=== PATIENT | male | born 1965 | race Caucasian/White ===

== ENCOUNTER → 2016-10-23 | Outpatient (CLI) | payer OTHER ==
[2016-10-23 17:22] LABS: Anion Gap 8 mmol/L; Blood Urea Nitrogen 13 mg/dL (9-20); Calcium 9.3 mg/dL (8.4-10.2); Carbon Dioxide 26 mmol/L (22-30); Chloride 106 mmol/L (98-107); Glucose 93 mg/dL (74-99); Non-African American GFR(MDRD) >60 (>60 ml/min/1.73 sqM); Potassium 4.2 mmol/L (3.5-5.1); Sodium 140 mmol/L (137-145)
--- NOTE | 2016-10-23 17:50 | CT ---
EXAMINATION TYPE: CT angio chest DATE OF EXAM: 10/23/2016 5:18 PM COMPARISON: NONE HISTORY: R/O PE. STATES OF ENLARGED HEART CT DLP: 646.0 mGycm Automated exposure control for dose reduction was used. CONTRAST: CTA scan of the thorax is performed with IV Contrast, patient injected with 70 mL of Omnipaque 350, p ulmonary embolism protocol. There are 3-D post processed images.. FINDINGS: The lungs are clear of consolidation. There is no evidence of a pulmonary mass. There is no pleural effusion. Heart is top normal in size. There are no hilar masses. There is no mediastinal ad enopathy. There is no evidence of aortic aneurysm or dissection. I see no filling defects in the pulmonary arteries. There is no pericardial effusion. The bony thorax appears intact. IMPRESSION: BORDERLINE CARDIOMEGALY. NO EVIDENCE OF PULMONARY EMBOLISM.
== END | disposition home or self-care (01) ==
LOC: RADCTMAIN 16:43
PROVIDERS: ATTEND Internal Medicine Cardiovascular Disease
DX: I51.7 Cardiomegaly (principal)
CPT/HCPCS: 83880; 80048; 71275; 36415; Q9967

== ENCOUNTER 2020-05-02 14:12 | Inpatient (IN) | payer OTHER ==
--- NOTE | 2020-05-02 14:38 | ED ---
General Adult HPI - General Chief complaint: Shortness of Breath Stated complaint: Vomiting Time Seen by Provider: 05/02/20 14:23 Source: patient, EMS Mode of arrival: EMS - History of Present Illness Initial comments: Dictation was produced using [employer] dictation software. please excuse any grammatical, word or spelling errors. This patient was cared for during a federal and state declared state of emergency secondary to Covid 19 Chief Complaint: 55-year-old male presents to the emergency department for hypoxic respiratory failure via transfer from [facility] History of Present Illness: 55-year-old male he was diagnosed positive with Covid 19 4 days ago. He is seen initially at [facility] were he had a CT angioma performed. He is discharged at that time. Patient's been symptomatic for the last week or so. Today he states that his symptoms are much worse. He was was evaluated at [facility] in response to be slightly hypoxic in the high 80s. Patient has no significant past medical history. 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 The ROS documented in this emergency department record has been reviewed and confirmed by me. Those systems with pertinent positive or negative responses have been documented in the HPI. All other systems are other negative and/or noncontributory. PHYSICAL EXAM: General Impression: Alert and oriented x3, not in acute distress HEENT: Normocephalic atraumatic, extra-ocular movements intact, pupils equal and reactive to light bilaterally, mucous membranes moist. Cardiovascular: Heart regular rate and rhythm Chest: Able to complete full sentences, no retractions, no tachypnea Abdomen: abdomen soft, non-tender, non-distended, no organomegaly Musculoskeletal: Pulses present and equal in all extremities, no peripheral edema Motor: no focal deficits noted Neurological: CN II-XII grossly intact, no focal motor or sensory deficits noted Skin: Intact with no visualized rashes Psych: Normal affect and mood ED course: 55-year-old male transferred from [facility] for hypoxic respiratory failure and Covid 19 vital signs upon arrival shows 94% on 2 L nasal cannula, worse vital signs within acceptable limits. Patient is satting well on 2 L nasal cannula. Allegedly patient oxygen fell into the high 80s without oxygen. Patient does not wear any home oxygen. Transferred documentation was reviewed. Patient's well-appearing at bedside and showing no signs of respiratory distress. Case is discussed with Dr. Haddad who is willing to accept patients care for admission. - Related Data Allergies Allergy/AdvReac Type Severity Reaction Status Date / Time No Known Allergies Allergy Verified 05/02/20 14:43 Review of Systems ROS Statement: Those systems with pertinent positive or pertinent negative responses have been documented in the HPI. ROS Other: All systems not noted in ROS Statement are negative. Past Medical History Past Medical History: No Reported History History of Any Multi-Drug Resistant Organisms: None Reported Past Surgical History: Cholecystectomy, Hernia Repair Additional Past Surgical History / Comment(s): lasix eye surgery 99, gallbladder removal 2004, [id number] repair with mesh 2017 Past Psychological History: No Psychological Hx Reported Smoking Status: Never smoker Past Alcohol Use History: None Reported Past Drug Use History: None Reported Course Vital Signs 05/02/20 14:24 Temperature 99.1 F Pulse Rate 91 Respiratory 20 Rate Blood Pressure 123/81 O2 Sat by Pulse 94 L Oximetry Disposition Clinical Impression: COVID-19 Disposition: ADMITTED IP TO THIS [facility] Condition: Fair Referrals: Jean Loaiza MD [Primary Care Provider] - 1-2 days Decision Time: 15:06
[2020-05-02] MEDS ORDERED: ACETAMINOPHEN TAB 325 MG TAB PO PRN (14:57)
[2020-05-02] MEDS ORDERED: NALOXONE 0.4 MG/ML 1 ML VIAL IV PRN (14:57)
[2020-05-02] MEDS: SODIUM CHLORIDE 0.9% 1,000 ML IV SCH (15:02)
[2020-05-02] MEDS: ONDANSETRON 4 MG/2 ML VIAL IVP PRN (18:43)
[2020-05-02 22:21] LABS: Basophils # (A) 0.1 k/uL (0-0.2); Basophils % (A) 2 %; Eosinophils % (A) 0 %; HCT 42.3 % (39.0-53.0); HGB 15.2 gm/dL (13.0-17.5); Hyperchromasia Slight; Lymphocytes # (A) 1.4 k/uL (1.0-4.8); Lymphocytes % (A) 36 %; MCH 30.8 pg (25.0-35.0); MCHC 35.9 g/dL (31.0-37.0); MCV 85.8 fL (80.0-100.0); Mean Platelet Volume 7.8; Monocytes # (A) 0.3 k/uL (0-1.0); Monocytes % (A) 7 %; Neutrophils % (A) 54 %; Platelet Count 199 k/uL (150-450); RBC 4.93 m/uL (4.30-5.90); RDW 12.1 % (11.5-15.5); WBC 3.8 k/uL (3.8-10.6)
[2020-05-02 22:26] LABS: ALT 55 U/L (4-49); AST 88 U/L (17-59); African American GFR (CKD) >90 (>60 ml/min/1.73 sqM); Albumin 3.4 g/dL (3.5-5.0); Albumin/Globulin Ratio 1.3; Alkaline Phosphatase 42 U/L (38-126); Anion Gap 7 mmol/L; Blood Urea Nitrogen 18 mg/dL (9-20); Calcium 8.4 mg/dL (8.4-10.2); Carbon Dioxide 28 mmol/L (22-30); Chloride 103 mmol/L (98-107); Globulin 2.7 g/dL; Glucose 112 mg/dL (74-99); Non-African American GFR(CKD) >90 (>60 ml/min/1.73 sqM); Potassium 4.4 mmol/L (3.5-5.1); Sodium 138 mmol/L (137-145); Total Bilirubin 0.8 mg/dL (0.2-1.3); Total Protein 6.1 g/dL (6.3-8.2)
--- NOTE | 2020-05-02 23:47 | P.HPIM ---
History of Present Illness H&P Date: 05/02/20 Chief Complaint: Short of breath History of presenting complaint: This is a pleasant 55-year-old patient who follows with Dr. Loaiza. Normally in good health. About 8 days ago patient started off with fever or chills significant headaches. Some diarrhea. Some loss of taste and smell. Bodyaches. Patient's is also got COVID. Initiate called in to his family doctor was given Zithromax. Didn't improve decided to go down to [facility] insects and dusky. Over the weekend. He does not remember his pulse ox. Was sent home. Symptoms are not really improved his a poor appetite. And is lost some weight. Decided to come in. In the ER was 91% on 3 L. Rather tight. Coughing quite a bit. 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 Physical examination: VITAL SIGNS: 99.1, 91, 20, 123/81, 91% on 3 daughters GENERAL: BMI 34.1, laying in bed , coughing bouts. EYES: Pupils equal. Conjunctiva normal. HEENT: External appearance of nose and ears normal, oral cavity grossly normal. NECK: JVD not raised; masses not palpable. HEART: First and second heart sounds are normal; no edema. LUNGS: Respiratory rate increased, decreased breath sounds. ABDOMEN: Soft, nontender, liver spleen not palpable, no masses palpable. PSYCH: [Alert and oriented x3; mood and affect slightly anxious l. NEUROLOGICAL: Cranial nerves grossly intact; no facial asymmetry, power and sensation grossly intact. LYMPHATICS: No lymph nodes palpable in the axilla and neck INVESTIGATIONS, reviewed in the clinical context: White count 3.8 hemoglobin 15.2 platelets 199 lymphocytes 1.4 D-dimer 0.94 potassium 4.4 creatinine 0.94 AST 88 ALT 55 CRP 33 Chest x-ray pending Assessment and plan: -COVID 19 pneumonia, symptoms present for about a week. Patient be started on Lovenox, Decadron, and supplements including zinc vitamin D vitamin C, Pepcid. We'll also give patient colchicine. -Relative hypoxia, give oxygen supplementation and incentive spirometry. -Obesity BMI 34.1 Consult ID and pulmonary. Care was discussed with the patient. Expected the patient to be in the hospital at least for 2 nights given his relative hypoxia Past Medical History Past Medical History: No Reported History History of Any Multi-Drug Resistant Organisms: None Reported Past Surgical History: Cholecystectomy, Hernia Repair Additional Past Surgical History / Comment(s): lasix eye surgery 99, gallbladder removal 2004, [id number] repair with mesh 2017 Past Psychological History: No Psychological Hx Reported Smoking Status: Never smoker Past Alcohol Use History: None Reported Past Drug Use History: None Reported Medications and Allergies Home Medications Medication Instructions Recorded Confirmed Type No Known Home Medications 05/02/20 05/02/20 History Allergies Allergy/AdvReac Type Severity Reaction Status Date / Time No Known Allergies Allergy Verified 05/02/20 15:32 Physical Exam Vitals: Vital Signs Temp Pulse Pulse Resp BP BP Pulse Ox 05/02/20 22:15 98.9 F 82 17 98/64 90 L 05/02/20 18:00 98.4 F 61 18 130/66 95 05/02/20 16:00 98.1 F 86 19 127/74 91 L 05/02/20 14:24 99.1 F 91 20 123/81 94 L Intake and Output 05/02/20 05/02/20 05/03/20 14:59 22:59 06:59 Other: # Voids 1 Weight 127.006 kg 127.006 kg Results CBC & Chem 7: 05/02/20 21:51 05/02/20 21:51 Labs: Abnormal Lab Results - Last 24 Hours (Table) 05/02/20 05/02/20 Range/Units 21:51 21:51 D-Dimer 0.94 H (<0.60) mg/L FEU Glucose 112 H (74-99) mg/dL AST 88 H (17-59) U/L ALT 55 H (4-49) U/L C-Reactive Protein 33.0 H (<10.0) mg/L Total Protein 6.1 L (6.3-8.2) g/dL Albumin 3.4 L (3.5-5.0) g/dL Thrombosis Risk Factor Assmnt - Choose All That Apply Each Factor Represents 1 point: Age 41-60 years Thrombosis Risk Factor Assessment Total Risk Factor Score: 1 Thrombosis Risk Factor Assessment Level: Low Risk
--- NOTE | 2020-05-03 00:06 | XR ---
EXAMINATION TYPE: XR chest 1V portable DATE OF EXAM: 05/02/2020 COMPARISON: Today HISTORY: Short of breath TECHNIQUE: FINDINGS: There is coarse interstitial infiltrate throughout the lungs with patchy atelectasis. Heart size is normal. There is no definite pleural effusion. IMPRESSION: Interstitial pulmonary infiltrates and patchy atelectasis which is not significantly diff erent than the exam 12 hours ago. Normal heart size.
[2020-05-03] MEDS: ZINC SULFATE 220 MG CAP PO SCH ×2 (00:37→08:59)
[2020-05-03] MEDS: FAMOTIDINE 20 MG TAB PO SCH ×3 (00:37→20:35)
[2020-05-03] MEDS: CHOLECALCIFEROL 25 MCG (1000 IU) TABLET PO SCH ×2 (00:37→08:59)
[2020-05-03] MEDS: ASCORBIC ACID 500 MG TAB PO SCH ×2 (00:37→08:59)
[2020-05-03] MEDS: COLCHICINE 0.6 MG EACH PO SCH ×3 (00:38→20:35)
[2020-05-03] MEDS: ENOXAPARIN 120 MG/0.8 ML SYRINGE SQ SCH ×3 (00:38→20:35)
[2020-05-03] MEDS: ONDANSETRON 4 MG/2 ML VIAL IVP PRN ×2 (00:40→09:01)
[2020-05-03] MEDS: ALBUTEROL HFA INHALER INHALATION SCH ×6 (01:13→20:08)
[2020-05-03] MEDS: dexAMETHasone 2 MG TAB PO SCH (08:58)
[2020-05-03] MEDS ORDERED: REMDESIVIR 200 MG in SODIUM CHLORIDE 0.9% 250 ML IVPB ONE (14:00)
[2020-05-03 14:41] VITALS: BMI 34.0
[2020-05-03] MEDS: SODIUM CHLORIDE 0.9% 1,000 ML IV SCH (19:04)
--- NOTE | 2020-05-03 19:50 | P.PN ---
Progress Note - Text Progress Note Date: 05/03/20 Chief Complaint: Short of breath History of presenting complaint: This is a pleasant 55-year-old patient who follows with Dr. Loaiza. Normally in good health. About 8 days ago patient started off with fever or chills significant headaches. Some diarrhea. Some loss of taste and smell. Bodyaches. Patient's is also got COVID. Initiate called in to his family doctor was given Zithromax. Didn't improve decided to go down to [facility] insects and dusky. Over the weekend. He does not remember his pulse ox. Was sent home. Symptoms are not really improved his a poor appetite. And is lost some weight. Decided to come in. In the ER was 91% on 3 L. Rather tight. Coughing quite a bit. Hospital course: Admitted with COVID 19 pneumonia, acute hypoxic respiratory failure. Started on Lovenox, steroids, zinc, Pepcid, vitamin D, vitamin C Today-cough. Tired. Nasal cannula. Oral intake a bit low. Tired Review of systems: Was done for constitutional, cardiovascular, GI, pulmonary. relevant finding as above Active Medications Acetaminophen (Acetaminophen Tab 325 Mg Tab) 650 mg PO Q6HR PRN PRN Reason: Mild Pain or Fever > 100.5 Albuterol Sulfate (Albuterol Hfa Inhaler) 4 puff INHALATION Q4H [facility] Last Admin: 05/03/20 15:28 Dose: 4 puff Documented by: Ascorbic Acid (Ascorbic Acid 500 Mg Tab) 500 mg PO DAILY [facility] Last Admin: 05/03/20 08:59 Dose: 500 mg Documented by: Cholecalciferol (Cholecalciferol 25 Mcg (1000 Iu) Tablet) 100 mcg PO DAILY [facility] Last Admin: 05/03/20 08:59 Dose: 100 mcg Documented by: Colchicine (Colchicine 0.6 Mg Each) 0.6 mg PO BID [facility] Last Admin: 05/03/20 08:58 Dose: 0.6 mg Documented by: Dexamethasone (Dexamethasone 2 Mg Tab) 6 mg PO DAILY [facility] Last Admin: 05/03/20 08:58 Dose: 6 mg Documented by: Enoxaparin Sodium (Enoxaparin 120 Mg/0.8 Ml Syringe) 120 mg SQ Q12HR [facility] Last Admin: 05/03/20 08:59 Dose: 120 mg Documented by: Famotidine (Famotidine 20 Mg Tab) 20 mg PO BID [facility] Last Admin: 05/03/20 08:58 Dose: 20 mg Documented by: Sodium Chloride (Saline 0.9%) 1,000 mls @ 20 mls/hr IV .Q24H [facility] Last Admin: 05/03/20 19:04 Dose: Not Given Documented by: Remdesivir 100 mg/ Sodium (Chloride) 250 mls @ 250 mls/hr IVPB DAILY@1400 [facility] Stop: 05/07/20 14:59 Naloxone HCl (Naloxone 0.4 Mg/Ml 1 Ml Vial) 0.2 mg IV Q2M PRN PRN Reason: Opioid Reversal Ondansetron HCl (Ondansetron 4 Mg/2 Ml Vial) 4 mg IVP Q6HR PRN PRN Reason: Nausea And Vomiting Last Admin: 05/03/20 09:01 Dose: 4 mg Documented by: Zinc Sulfate (Zinc Sulfate 220 Mg Cap) 220 mg PO DAILY [facility] Last Admin: 05/03/20 08:59 Dose: 220 mg Documented by: Past medical history: None 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 Physical examination: VITAL SIGNS: 98.6, 95, 17, 114/67, 94% on 4 L GENERAL: Laying in bed, occasional coughing, tired appearing PSYCH: [Alert and oriented x3; mood and affect slightly anxious l. NEUROLOGICAL: Cranial nerves grossly intact; no facial asymmetry, power and sensation grossly intact. Rest of the exam as per pulmonary and nursing INVESTIGATIONS, reviewed in the clinical context: White count 3.8 hemoglobin 15.2 platelets 199 lymphocytes 1.4 D-dimer 0.94 potassium 4.4 creatinine 0.94 AST 88 ALT 55 CRP 33 Chest x-ray pending Assessment and plan: -COVID 19 pneumonia, symptoms present for about a week before presentation.. Lovenox, Decadron, and supplements including zinc vitamin D vitamin C, Pepcid. colchicine. Started on Remdesivir by ID. -Relative hypoxia, oxygen supplementation and incentive spirometry. -Obesity BMI 34.1 Discussed with the patient. Encouraged to sit up. Use incentive spirometry. Started on Remdesivir.
[2020-05-04] MEDS: ALBUTEROL HFA INHALER INHALATION SCH ×6 (00:56→19:43)
--- NOTE | 2020-05-04 06:24 | CONS ---
CONSULTATION DATE OF SERVICE: 05/03/2020 REASON FOR CONSULTATION: COVID-19 pneumonia. HISTORY OF PRESENT ILLNESS: The patient is a 55-year-old male who has been transferred to this facility from where the patient presented with increasing shortness of breath. Apparently the patient's symptoms started about a week ago and has been mostly weakness and increasing shortness of breath. The patient was initially evaluated at [facility]. The patient did have a COVID-[address] angiogram suggestive of pneumonia. The patient did not mention receiving any specific treatment for the same. The patient presented back to the hospital with concern for increased shortness of breath with minimal exertion. The patient did have a cough which has been moderate in intensity with occasional sputum production. No hemoptysis. No chest pain. Some nausea but no vomiting. No abdominal pain. Did have diarrhea. With these symptoms, the patient was evaluated. The patient did have a chest x-ray with evidence of interstitial pulmonary infiltrate and patchy atelectasis. The patient did have a low- grade fever of 99.1. The patient was hypoxic with O2 sats of 91%, currently on 4 L nasal cannula. The patient did have a normal white count. No lymphopenia. D-dimer was mildly elevated at 0.94. Creatinine was normal. Liver enzymes are elevated. CRP is elevated. The patient has been admitted to the the hospital. Infectious Disease was consulted for further management of antibiotic therapy. REVIEW OF SYSTEMS: Positive points have been mentioned in HPI. Rest of the systems are negative. PAST MEDICAL HISTORY: No major illnesses. PAST SURGICAL HISTORY: Cholecystectomy and hernia repair. SOCIAL HISTORY: No history of smoking, drinking or drug use. FAMILY HISTORY: No pertinent findings noticed. ALLERGIES: No known drug allergies. MEDICATIONS: The patient is currently on Tylenol, Ventolin, vitamin C, colchicine, dexamethasone, Lovenox, Pepcid, Narcan, Zofran and zinc. PHYSICAL EXAMINATION: VITAL SIGNS: Blood pressure is 114/71 with a pulse of 75, temperature 98.4. He is 91% on 4 L nasal cannula. GENERAL DESCRIPTION: A middle-aged male lying in bed in no distress. No tachypnea or accessory muscles of respiration use. HEENT: Examination shows no pallor or scleral icterus. Oral mucous membrane is dry. No pharyngeal erythema or thrush. NECK: Trachea central, no thyromegaly. LUNGS: Unlabored breathing. Coarse with crackles at the bases bilaterally. No wheeze. HEART: S1, S2. Regular rate and rhythm. ABDOMEN: Soft, no tenderness. No guarding or rigidity. EXTREMITIES: No edema of the feet. SKIN: Examination shows no rash or mass palpable. NEUROLOGICAL: Patient is awake, alert, oriented. Mood and affect normal. LABS: Hemoglobin is 15.2, white count 3.8, BUN of 18, creatinine 0.94. Electrolytes have been normal. Liver enzymes mildly elevated. Chest x-ray report as mentioned above. DIAGNOSTIC IMPRESSION AND PLAN: Patient with admission to the hospital with increasing shortness of breath and cough with diagnosis of acute COVID-19 pneumonia. Symptoms onset was about a week ago with evidence of hypoxemia and high risk of progression to respiratory failure. Patient does meet criteria for the remdesivir therapy. PLAN: 1. Patient started on remdesivir mg 100 mg and 100 mg daily. 2. Lovenox, dexamethasone, zinc and ascorbic acid. 3. Droplet isolation and respiratory support. 4. We will follow on clinical condition and investigations to further adjust medication if needed. Thank you for this consultation. Will follow this patient along with you. MMODL / IJN: [id number] /
[2020-05-04 06:52] LABS: C Reactive Protein 54.9 mg/L (<10.0)
[2020-05-04] MEDS: dexAMETHasone 2 MG TAB PO SCH ×2 (07:52→08:01)
[2020-05-04] MEDS: ENOXAPARIN 120 MG/0.8 ML SYRINGE SQ SCH (07:52)
[2020-05-04] MEDS: COLCHICINE 0.6 MG EACH PO SCH ×2 (07:53→07:59)
[2020-05-04] MEDS: FAMOTIDINE 20 MG TAB PO SCH ×3 (07:53→20:15)
[2020-05-04] MEDS: ASCORBIC ACID 500 MG TAB PO SCH ×2 (07:54→08:00)
[2020-05-04] MEDS: ZINC SULFATE 220 MG CAP PO SCH ×2 (07:54→08:01)
[2020-05-04] MEDS: CHOLECALCIFEROL 25 MCG (1000 IU) TABLET PO SCH ×2 (07:54→08:00)
[2020-05-04] MEDS: REMDESIVIR 100 MG in SODIUM CHLORIDE 0.9% 250 ML IVPB SCH (13:38)
[2020-05-04 15:22] LABS: Basophils # (A) 0.01 X 10*3/uL (0.00-0.10); Basophils % (A) 0.2 %; Eosinophils # (A) 0 X 10*3/uL (0.04-0.35); Eosinophils % (A) 0 %; HCT 42.3 % (39.6-50.0); HGB 14.5 g/dL (13.0-17.0); Lymphocytes # (A) 2.11 X 10*3/uL (0.90-5.00); Lymphocytes % (A) 34.1 %; MCH 30.2 pg (27.0-32.0); MCHC 34.3 g/dL (32.0-37.0); MCV 88.1 fL (80.0-97.0); Monocytes # (A) 0.43 X 10*3/uL (0.20-1.00); Monocytes % (A) 6.9 %; Neutrophils # (A) 3.59 X 10*3/uL (1.80-7.70); Platelet Count 262 X 10*3/uL (140-440); RDW 12.1 % (11.5-14.5); WBC 6.19 X 10*3/uL (4.50-10.00)
--- NOTE | 2020-05-04 15:27 | P.CNPUL ---
History of Present Illness Consult date: 05/04/20 Reason for consult: dyspnea, cough, pneumonia, abnormal CXR/CT Chief complaint: Shortness of breath along with cough History of present illness: This is a 55-year-old nonsmoker male with the ongoing cough shortness of breath started from last week, she presented to [facility] where he was found to be hypoxic saturation 80s covert tests came back positive and transferred over here for further evaluation, currently patient is on 6 L oxygen his saturation is 92%, hemodynamic status stable, treated with the Decadron once daily Lovenox Zofran and REMdesivir chest x-ray bilateral interstitial infiltrate and some patchy atelectasis no significant change compared to prior x-rays Review of Systems All systems: negative Past Medical History Past Medical History: No Reported History History of Any Multi-Drug Resistant Organisms: None Reported Past Surgical History: Cholecystectomy, Hernia Repair Additional Past Surgical History / Comment(s): lasix eye surgery 99, gallbladder removal 2004, [id number] repair with mesh 2017 Past Psychological History: No Psychological Hx Reported Smoking Status: Never smoker Past Alcohol Use History: None Reported Past Drug Use History: None Reported Medications and Allergies Home Medications Medication Instructions Recorded Confirmed Type No Known Home Medications 05/02/20 05/02/20 History Allergies Allergy/AdvReac Type Severity Reaction Status Date / Time No Known Allergies Allergy Verified 05/02/20 15:32 Physical Exam Vitals: Vital Signs Temp Pulse Resp BP Pulse Ox 05/04/20 09:29 98.8 F 89 17 91/61 92 L 05/04/20 07:50 98 18 05/04/20 05:55 99.6 F 98 18 100/56 90 L 05/04/20 02:00 98.4 F 75 18 114/71 91 L 05/04/20 01:04 93 L 05/03/20 21:57 98.4 F 75 18 114/71 91 L 05/03/20 19:30 75 18 05/03/20 17:40 98.4 F 78 17 117/73 91 L Intake and Output 05/04/20 05/04/20 05/04/20 06:59 14:59 22:59 Intake Total 560 Balance 560 Intake: Intake, IV Titration 260 Amount Sodium Chloride 0.9% 1, 260 000 ml @ 20 mls/hr IV . Q24H [facility] Rx#:[id number] Oral 300 Other: Voiding Method Toilet - Constitutional General appearance: average body habitus, cooperative, disheveled - EENT Eyes: PERRLA Ears: bilateral: normal - Neck Neck: normal ROM Carotids: bilateral: upstroke normal Thyroid: bilateral: normal size - Respiratory Respiratory: bilateral: diminished - Cardiovascular Rhythm: regular Heart sounds: normal: S1, S2 - Gastrointestinal General gastrointestinal: normal bowel sounds - Neurologic Neurologic: CNII-XII intact - Musculoskeletal Musculoskeletal: gait normal, generalized weakness, strength equal bilaterally - Psychiatric Psychiatric: A&O x's 3, appropriate affect, intact judgment & insight Results - Laboratory Findings CBC and BMP: 05/02/20 21:51 05/02/20 21:51 PT/INR, D-dimer D-Dimer 0.47 mg/L FEU (<0.60) 05/04/20 06:06 Abnormal lab findings: Abnormal Labs 05/02/20 05/02/20 05/04/20 21:51 21:51 06:06 D-Dimer 0.94 H Glucose 112 H AST 88 H ALT 55 H Lactate Dehydrogenase 1600 H C-Reactive Protein 33.0 H 54.9 H Total Protein 6.1 L Albumin 3.4 L - Diagnostic Findings Chest x-ray: report reviewed, image reviewed (Finding as noted above) Assessment and Plan Assessment: Acute hypoxic respiratory failure Covid 19 pneumonia Morbid obesity Plan: Continue IV REMdesivir along with steroids however we'll change it to IV every 12 continue bronchodilator and current plan of care will follow closely Time with Patient: Greater than 30
--- NOTE | 2020-05-04 15:56 | PN ---
PROGRESS NOTE DATE OF SERVICE: 05/04/2020 REASON FOR FOLLOWUP: Acute COVID-19 pneumonia. INTERVAL HISTORY: The patient is currently afebrile. The patient is breathing comfortably compared to yesterday. Patient denies having any chest pain. Cough has decreased in intensity. No nausea, no vomiting. No abdominal pain and diarrhea has slowed down. PHYSICAL EXAMINATION: Blood pressure 100/56, pulse of 98, temperature 99.6. He is 90% on 4 L nasal cannula. General description is a middle-aged male up in the chair in no distress. RESPIRATORY SYSTEM: Unlabored breathing, decreased intensity of breath sounds. No wheeze. HEART: S1, S2. Regular rate and rhythm. ABDOMEN: Soft, no tenderness. LABS: D-dimer is down to 0.47. LDH of 1600. CRP is 54.9. Procalcitonin is normal. DIAGNOSTIC IMPRESSION AND PLAN: Patient with acute COVID-19 pneumonia. This patient seemed to have shown overall clinical response to the current treatment. Currently on Remdesivir, dexamethasone, Lovenox, zinc, to continue along with respiratory support. Has been advised to use the incentive spirometry. Continue supportive care. MMODL / IJN: [id number] /
[2020-05-04] MEDS: SODIUM CHLORIDE 0.9% 1,000 ML IV SCH (19:16)
[2020-05-04] MEDS: ENOXAPARIN 40 MG/0.4 ML SYRINGE SQ SCH (20:15)
--- NOTE | 2020-05-04 22:12 | P.PN ---
Subjective From records This is a pleasant 55-year-old patient who follows with Dr. Loaiza. Normally in good health. About 8 days ago patient started off with fever or chills significant headaches. Some diarrhea. Some loss of taste and smell. Bodyaches. Patient's is also got COVID. Initiate called in to his family doctor was given Zithromax. Didn't improve decided to go down to [facility] insects and dusky. Over the weekend. He does not remember his pulse ox. Was sent home. Symptoms are not really improved his a poor appetite. And is lost some weight. Decided to come in. In the ER was 91% on 3 L. Rather tight. Coughing quite a bit. Hospital course: Admitted with COVID 19 pneumonia, acute hypoxic respiratory failure. Started on Lovenox, steroids, zinc, Pepcid, vitamin D, vitamin C Today-cough. Tired. Nasal cannula. Oral intake a bit low. Tired Subjective: 05/04/2020 This is a pleasant 55 years old male who presents with respiratory distress and found to have Covid pneumonia and acute hypoxic respiratory failure. Patient was sitting in chair comfortable not in respiratory distress needed about 4-5 L of oxygen per minute to keep his oxygen saturation and 90s, he has mild coughing with no chest pain. He has also significant diarrhea with increased frequency about every hour as per patient with no abdominal pain or vomiting Patient was not on home oxygen Continue anticoagulation for surgery team hemodynamically he is a stable. Blood pressure was on the low side this morning 91/61 but improved thereafter. Labs including CBC and BMP are unremarkable. Prostatecalcitonin is not elevated at 0.06. Inflammatory markers are elevated with lactate dehydrogenase 1600, C- reactive protein 54.9. he is currently covered with dexamethasone, vitamin C, zinc, Lovenox and remdesivir Lower Lovenox. Therapeutic to prophylactic dose because of improving d-dimer within the reference range Review of systems CONSTITUTIONAL: No fever, no malaise, no fatigue. HEENT: No recent visual problems or hearing problems. Denied any sore throat. CARDIOVASCULAR: No orthopnea, PND, no palpitations, no syncope. PULMONARY: No chest wall tenderness, no hemoptysis. GASTROINTESTINAL: No diarrhea, no nausea, no vomiting, no abdominal pain. Normoactive bowel sounds. NEUROLOGICAL: No headaches, no weakness, no numbness. Active Medications Generic Name Dose Route Start Last Admin Trade Name Freq PRN Reason Stop Dose Admin Acetaminophen 650 mg 05/02/20 14:57 Acetaminophen Tab 325 Mg Tab PO Q6HR PRN Mild Pain or Fever > 100.5 Albuterol Sulfate 4 puff 05/02/20 23:45 05/04/20 19:43 Albuterol Hfa Inhaler INHALATION 4 puff Q4H [facility] Administration Ascorbic Acid 500 mg 05/02/20 23:45 05/04/20 08:00 Ascorbic Acid 500 Mg Tab PO Not Given DAILY [facility] Cholecalciferol 100 mcg 05/02/20 23:45 05/04/20 08:00 Cholecalciferol 25 Mcg (1000 Iu) Tablet PO Not Given DAILY [facility] Dexamethasone 6 mg 05/03/20 09:00 05/04/20 08:01 Dexamethasone 2 Mg Tab PO Not Given DAILY [facility] Enoxaparin Sodium 40 mg 05/04/20 21:00 05/04/20 20:15 Enoxaparin 40 Mg/0.4 Ml Syringe SQ 40 mg Q12HR [facility] Administration Famotidine 20 mg 05/02/20 23:45 05/04/20 20:15 Famotidine 20 Mg Tab PO 20 mg BID [facility] Administration Sodium Chloride 1,000 mls @ 20 mls/hr 05/02/20 15:00 05/04/20 19:16 Saline 0.9% IV Not Given .Q24H [facility] Remdesivir 100 mg/ Sodium 250 mls @ 250 mls/hr 05/04/20 14:00 05/04/20 13:38 Chloride IVPB 05/07/20 14:59 250 mls/hr DAILY@1400 [facility] Administration Naloxone HCl 0.2 mg 05/02/20 14:57 Naloxone 0.4 Mg/Ml 1 Ml Vial IV Q2M PRN Opioid Reversal Ondansetron HCl 4 mg 05/02/20 18:23 05/03/20 09:01 Ondansetron 4 Mg/2 Ml Vial IVP 4 mg Q6HR PRN Administration Nausea And Vomiting Zinc Sulfate 220 mg 05/02/20 23:45 05/04/20 08:01 Zinc Sulfate 220 Mg Cap PO Not Given DAILY [facility] Objective - Vital Signs Vital signs: Vital Signs Temp 98.8 F 05/04/20 09:29 Pulse 89 05/04/20 09:29 Resp 17 05/04/20 09:29 BP 91/61 05/04/20 09:29 Pulse Ox 92 L 05/04/20 09:29 Intake & Output 05/03/20 05/04/20 05/04/20 18:59 06:59 18:59 Intake Total 470 560 Balance 470 560 Weight 127.006 kg Intake: Intake, IV Titration 470 260 Amount Remdesivir 200 mg In 250 Sodium Chloride 0.9% 250 ml @ 250 mls/hr IVPB ONCE ONE Rx#:[id number] Sodium Chloride 0.9% 1, 220 260 000 ml @ 20 mls/hr IV . Q24H [facility] Rx#:[id number] Oral 300 Other: Voiding Method Toilet Toilet Toilet # Voids 2 - Exam GENERAL: The patient is alert and oriented x3, not in any acute distress. Well developed, well nourished. HEENT: Pupils are round and equally reacting to light. EOMI. No scleral icterus. No conjunctival pallor. Normocephalic, atraumatic. No pharyngeal erythema. No thyromegaly. CARDIOVASCULAR: S1 and S2 present. No murmurs, rubs, or gallops. -PULMONARY: Chest is clear to auscultation, scattered crepitation ABDOMEN: Soft, nontender, nondistended, normoactive bowel sounds. No palpable organomegaly. MUSCULOSKELETAL: No joint swelling or deformity. EXTREMITIES: No cyanosis, clubbing, or pedal edema. NEUROLOGICAL: Gross neurological examination did not reveal any focal deficits. SKIN: No rashes. no petechiae. - Labs CBC & Chem 7: 05/04/20 06:06 05/02/20 21:51 Labs: Abnormal Lab Results - Last 24 Hours (Table) 05/04/20 Range/Units 06:06 Lactate Dehydrogenase 1600 H (313-618) U/L C-Reactive Protein 54.9 H (<10.0) mg/L Assessment and Plan Assessment: -COVID 19 pneumonia, symptoms present for about a week before presentation.. Continue with Lovenox, Decadron, and supplements including zinc vitamin D vitamin C, Pepcid. Started on Remdesivir by ID and pulmonary. Discontinue colchicine -Acute hypoxic respiratory failure , c/w oxygen supplementation and incentive spirometry. -Obesity BMI 34.1 DVT prophylaxis: Lovenox GI prophylaxis: Pepcid Prognosis is guarded
[2020-05-05] MEDS: ALBUTEROL HFA INHALER INHALATION SCH ×6 (01:04→21:49)
[2020-05-05] MEDS: ASCORBIC ACID 500 MG TAB PO SCH (08:51)
[2020-05-05] MEDS: FAMOTIDINE 20 MG TAB PO SCH ×2 (08:51→21:13)
[2020-05-05] MEDS: CHOLECALCIFEROL 25 MCG (1000 IU) TABLET PO SCH (08:51)
[2020-05-05] MEDS: ZINC SULFATE 220 MG CAP PO SCH (08:51)
[2020-05-05] MEDS: ENOXAPARIN 40 MG/0.4 ML SYRINGE SQ SCH ×2 (08:52→21:14)
[2020-05-05] MEDS: DEXAMETHASONE SOD PHOSPHATE 10 MG/ML 1 ML VIAL IV SCH ×2 (08:52→21:13)
[2020-05-05] MEDS ORDERED: dexAMETHasone 2 MG TAB PO SCH (09:00)
[2020-05-05 11:56] LABS: Glucose,Whole Blood 126 mg/dL (75-99)
--- NOTE | 2020-05-05 13:13 | PN ---
PROGRESS NOTE DATE OF SERVICE: 05/05/2020 REASON FOR FOLLOWUP: Acute COVID-19 pneumonia. INTERVAL HISTORY: The patient is currently afebrile. The patient is breathing slightly comfortably. Patient denies any chest pain. Did have a cough but no sputum. No nausea. No abdominal pain. No diarrhea. PHYSICAL EXAMINATION: Blood pressure 109/68 with a pulse of 77, temperature 97.6. He is 92% on 4 L nasal cannula. General description is a middle-aged male up in the chair in no distress. Respiratory system: Unlabored breathing with decreased intensity breath sounds in the base. No wheeze. Heart S1, S2. Regular rate and rhythm. Abdomen soft, no tenderness. LABS: No new labs have been obtained today. DIAGNOSTIC IMPRESSION AND PLAN: Patient with acute COVID-19 pneumonia. The patient to continue with Remdesivir, dexamethasone, Lovenox, multivitamin and monitor clinical course closely. Continue supportive care. MMODL / IJN: [id number] /
[2020-05-05] MEDS: INSULIN ASPART (NovoLOG) 100 UNIT/ML VIAL SQ SCH ×3 (13:27→21:02)
[2020-05-05] MEDS: REMDESIVIR 100 MG in SODIUM CHLORIDE 0.9% 250 ML IVPB SCH (13:55)
--- NOTE | 2020-05-05 16:25 | P.PN ---
Subjective From records This is a pleasant 55-year-old patient who follows with Dr. oLaiza. Normally in good health. About 8 days ago patient started off with fever or chills significant headaches. Some diarrhea. Some loss of taste and smell. Bodyaches. Patient's is also got COVID. Initiate called in to his family doctor was given Zithromax. Didn't improve decided to go down to [facility] insects and dusky. Over the weekend. He does not remember his pulse ox. Was sent home. Symptoms are not really improved his a poor appetite. And is lost some weight. Decided to come in. In the ER was 91% on 3 L. Rather tight. Coughing quite a bit. Hospital course: Admitted with COVID 19 pneumonia, acute hypoxic respiratory failure. Started on Lovenox, steroids, zinc, Pepcid, vitamin D, vitamin C Today-cough. Tired. Nasal cannula. Oral intake a bit low. Tired Subjective: 05/04/2020 This is a pleasant 55 years old male who presents with respiratory distress and found to have Covid pneumonia and acute hypoxic respiratory failure. Patient was sitting in chair comfortable not in respiratory distress needed about 4-5 L of oxygen per minute to keep his oxygen saturation and 90s, he has mild coughing with no chest pain. He has also significant diarrhea with increased frequency about every hour as per patient with no abdominal pain or vomiting Patient was not on home oxygen Continue anticoagulation for surgery team hemodynamically he is a stable. Blood pressure was on the low side this morning 91/61 but improved thereafter. Labs including CBC and BMP are unremarkable. Prostatecalcitonin is not elevated at 0.06. Inflammatory markers are elevated with lactate dehydrogenase 1600, C- reactive protein 54.9. he is currently covered with dexamethasone, vitamin C, zinc, Lovenox and remdesivir Lower Lovenox. Therapeutic to prophylactic dose because of improving d-dimer within the reference range 05/05/2020 Patient clinically looks close to yesterday. Some improvement as he describes however clinically looks similar a still needs 4 L/m of oxygen to keep oxygen saturation above 90%. No tachypnea at rest with minimal cuff however he reports improvement in his diarrhea. Patient is asking when he can be discharged home, I explained to him he is not medically ready yet and he agrees to stay. No labs from today. Glucose is controlled. His dexamethasone dose was increased to 6 mg IV twice daily. He continue on Re mdesivir and Lovenox 40 mg twice daily. Also he isn't zinc and vitamin C. We will check for C. diff Review of systems CONSTITUTIONAL: No fever, no malaise, no fatigue. HEENT: No recent visual problems or hearing problems. Denied any sore throat. CARDIOVASCULAR: No orthopnea, PND, no palpitations, no syncope. PULMONARY: No shortness of breath, no cough, no hemoptysis. GASTROINTESTINAL: No diarrhea, no nausea, no vomiting, no abdominal pain. Normoactive bowel sounds. NEUROLOGICAL: No headaches, no weakness, no numbness. Active Medications Generic Name Dose Route Start Last Admin Trade Name Freq PRN Reason Stop Dose Admin Acetaminophen 650 mg 05/02/20 14:57 Acetaminophen Tab 325 Mg Tab PO Q6HR PRN Mild Pain or Fever > 100.5 Albuterol Sulfate 4 puff 05/02/20 23:45 05/05/20 11:35 Albuterol Hfa Inhaler INHALATION 4 puff Q4H [facility] Administration Ascorbic Acid 500 mg 05/02/20 23:45 05/05/20 08:51 Ascorbic Acid 500 Mg Tab PO 500 mg DAILY [facility] Administration Cholecalciferol 100 mcg 05/02/20 23:45 05/05/20 08:51 Cholecalciferol 25 Mcg (1000 Iu) Tablet PO 100 mcg DAILY [facility] Administration Dexamethasone Sodium Phosphate 6 mg 05/05/20 09:00 05/05/20 08:52 Dexamethasone Sod Phosphate 10 Mg/Ml 1 Ml Vial IV 6 mg BID [facility] Administration Enoxaparin Sodium 40 mg 05/04/20 21:00 05/05/20 08:52 Enoxaparin 40 Mg/0.4 Ml Syringe SQ 40 mg Q12HR [facility] Administration Famotidine 20 mg 05/02/20 23:45 05/05/20 08:51 Famotidine 20 Mg Tab PO 20 mg BID [facility] Administration Sodium Chloride 1,000 mls @ 20 mls/hr 05/02/20 15:00 05/04/20 19:16 Saline 0.9% IV Not Given .Q24H [facility] Remdesivir 100 mg/ Sodium 250 mls @ 250 mls/hr 05/04/20 14:00 05/05/20 13:55 Chloride IVPB 05/07/20 14:59 250 mls/hr DAILY@1400 [facility] Administration Insulin Aspart 0 unit 05/05/20 12:30 05/05/20 13:27 Insulin Aspart (Novolog) 100 Unit/Ml Vial SQ Not Given ACHS [facility] Protocol Naloxone HCl 0.2 mg 05/02/20 14:57 Naloxone 0.4 Mg/Ml 1 Ml Vial IV Q2M PRN Opioid Reversal Ondansetron HCl 4 mg 05/02/20 18:23 05/03/20 09:01 Ondansetron 4 Mg/2 Ml Vial IVP 4 mg Q6HR PRN Administration Nausea And Vomiting Zinc Sulfate 220 mg 05/02/20 23:45 05/05/20 08:51 Zinc Sulfate 220 Mg Cap PO 220 mg DAILY [facility] Administration Objective - Vital Signs Vital signs: Vital Signs Temp 97.6 F 05/05/20 10:38 Pulse 77 05/05/20 10:38 Resp 16 05/05/20 10:38 BP 109/68 05/05/20 10:38 Pulse Ox 92 L 05/05/20 10:38 Intake & Output 05/04/20 05/05/20 05/05/20 18:59 06:59 18:59 Other: Voiding Method Toilet Toilet # Voids 2 2 - Exam -GENERAL: The patient is alert and oriented x3, not in any acute distress. Obese HEENT: Pupils are round and equally reacting to light. EOMI. No scleral icterus. No conjunctival pallor. Normocephalic, atraumatic. No pharyngeal erythema. No thyromegaly. CARDIOVASCULAR: S1 and S2 present. No murmurs, rubs, or gallops. -PULMONARY: Chest is clear to auscultation, scattered crepitation ABDOMEN: Soft, nontender, nondistended, normoactive bowel sounds. No palpable organomegaly. MUSCULOSKELETAL: No joint swelling or deformity. EXTREMITIES: No cyanosis, clubbing, or pedal edema. NEUROLOGICAL: Gross neurological examination did not reveal any focal deficits. SKIN: No rashes. no petechiae. - Labs CBC & Chem 7: 05/04/20 06:06 05/02/20 21:51 Labs: Abnormal Lab Results - Last 24 Hours (Table) 05/04/20 05/05/20 Range/Units 06:06 11:51 Immature Gran # 0.05 H (0.00-0.04) X 10*3/uL Eosinophils # 0 L (0.04-0.35) X 10*3/uL POC Glucose (mg/dL) 126 H (75-99) mg/dL Assessment and Plan Assessment: -COVID 19 pneumonia, symptoms present for about a week before presentation.. Continue with Lovenox, Decadron, and supplements including zinc vitamin D vitamin C, Pepcid. Started on Remdesivir by ID and pulmonary. -Viral gastroenteritis secondary to Covid. Rule out C. diff -Acute hypoxic respiratory failure , c/w oxygen supplementation and incentive spirometry. -Obesity BMI 34.1 DVT prophylaxis: Lovenox GI prophylaxis: Pepcid Prognosis is guarded
[2020-05-05] MEDS: SODIUM CHLORIDE 0.9% 1,000 ML IV SCH (16:44)
[2020-05-05 16:50] LABS: Glucose,Whole Blood 145 mg/dL (75-99)
[2020-05-05 20:43] LABS: Glucose,Whole Blood 140 mg/dL (75-99)
[2020-05-06] MEDS: ALBUTEROL HFA INHALER INHALATION SCH ×7 (00:30→23:16)
--- NOTE | 2020-05-06 06:53 | XR ---
EXAMINATION TYPE: XR chest 1V DATE OF EXAM: 05/06/2020 CLINICAL HISTORY: Difficulty breathing and COVID progress study. TECHNIQUE: Single AP portable upright view of the chest is obtained. COMPARISON: Chest x-ray from [address] chest October 23, 2016 FINDINGS: Persistent low lung volumes with chronic parenchymal changes and bibasilar increased opaci ties. Cardiac silhouette size is stable and upper limits of normal. Osseous structures are intact. IMPRESSION: Low lung volumes and multifocal bilateral acute infiltrates consistent with known covid 1 9 infection. No significant change from most recent x-ray.
[2020-05-06 06:58] LABS: Glucose,Whole Blood 141 mg/dL (75-99)
[2020-05-06] MEDS: CHOLECALCIFEROL 25 MCG (1000 IU) TABLET PO SCH (07:18)
[2020-05-06] MEDS: INSULIN ASPART (NovoLOG) 100 UNIT/ML VIAL SQ SCH ×4 (07:18→20:38)
[2020-05-06] MEDS: ASCORBIC ACID 500 MG TAB PO SCH (07:19)
[2020-05-06] MEDS: FAMOTIDINE 20 MG TAB PO SCH ×2 (07:19→20:49)
[2020-05-06] MEDS: ZINC SULFATE 220 MG CAP PO SCH (07:19)
[2020-05-06] MEDS: DEXAMETHASONE SOD PHOSPHATE 10 MG/ML 1 ML VIAL IV SCH ×2 (07:19→20:48)
[2020-05-06] MEDS: ENOXAPARIN 40 MG/0.4 ML SYRINGE SQ SCH ×2 (07:19→20:49)
[2020-05-06 09:45] LABS: African American GFR (CKD) 109.5 (60.0-200.0); Albumin 3.3 g/dL (3.80-4.90); Albumin/Globulin Ratio 1.14 (1.60-3.17); Anion Gap 4.7 mmol/L (4.00-12.00); BUN/Creat Ratio 21.11 Ratio (12.00-20.00); C Reactive Protein 1.8 mg/dL (0.0-0.8); Calcium 8.5 mg/dL (8.7-10.3); Carbon Dioxide 29.3 mmol/L (21.6-31.8); Globulin 2.9 g/dL (1.6-3.3); Non-African American GFR(CKD) 94.5 (60.0-200.0); Potassium 4.5 mmol/L (3.5-5.5); Total Bilirubin 0.8 mg/dL (0.3-1.2); Total Protein 6.2 g/dL (6.2-8.2)
--- NOTE | 2020-05-06 10:01 | P.PN ---
Subjective Progress Note Date: 05/06/20 Principal diagnosis: Acute hypoxic respiratory failure Covid 19 pneumonia Morbid obesity 05/06/2020, patient seen and evaluated examined overall respiratory status is stable remains on 4 L oxygen, and feeling better cough congestion slightly improved does get short of breath on activity and exertion, LDH came down to 514, chest x-ray done earlier today remains unchanged This is a 55-year-old nonsmoker male with the ongoing cough shortness of breath started from last week, she presented to [facility] where he was found to be hypoxic saturation 80s covert tests came back positive and transferred over here for further evaluation, currently patient is on 6 L oxygen his saturation is 92%, hemodynamic status stable, treated with the Decadron once daily Lovenox Zofran and REMdesivir chest x-ray bilateral interstitial infiltrate and some patchy atelectasis no significant change compared to prior x-rays Objective - Vital Signs Vital signs: Vital Signs Temp 97.6 F 05/06/20 05:42 Pulse 71 05/06/20 05:42 Resp 16 05/06/20 05:42 BP 131/81 05/06/20 05:42 Pulse Ox 94 L 05/06/20 05:42 Intake & Output 05/05/20 05/06/20 05/06/20 18:59 06:59 18:59 Intake Total 560 Balance 560 Intake: Intake, IV Titration 260 Amount Sodium Chloride 0.9% 1, 260 000 ml @ 20 mls/hr IV . Q24H [facility] Rx#:[id number] Oral 300 Other: Voiding Method Toilet # Voids 3 3 # Bowel Movements 2 - Exam - Constitutional General appearance: average body habitus, cooperative, disheveled - EENT Eyes: PERRLA Ears: bilateral: normal - Neck Neck: normal ROM Carotids: bilateral: upstroke normal Thyroid: bilateral: normal size - Respiratory Respiratory: bilateral: diminished - Cardiovascular Rhythm: regular Heart sounds: normal: S1, S2 - Gastrointestinal General gastrointestinal: normal bowel sounds - Neurologic Neurologic: CNII-XII intact - Musculoskeletal Musculoskeletal: gait normal, generalized weakness, strength equal bilaterally - Psychiatric Psychiatric: A&O x's 3, appropriate affect, intact judgment & insight - Labs CBC & Chem 7: 05/04/20 06:06 05/06/20 06:16 Labs: Abnormal Lab Results - Last 24 Hours (Table) 05/05/20 05/05/20 05/05/20 Range/Units 11:51 16:44 20:42 BUN/Creatinine Ratio (12.00-20.00) Ratio Glucose (70-110) mg/dL POC Glucose (mg/dL) 126 H 145 H 140 H (75-99) mg/dL Calcium (8.7-10.3) mg/dL AST (14-35) U/L ALT (10-49) U/L Lactate Dehydrogenase (120-246) U/L C-Reactive Protein (0.0-0.8) mg/dL Albumin (3.80-4.90) g/dL Albumin/Globulin Ratio (1.60-3.17) g/dL 05/06/20 05/06/20 Range/Units 06:16 06:57 BUN/Creatinine Ratio 21.11 H (12.00-20.00) Ratio Glucose 144 H (70-110) mg/dL POC Glucose (mg/dL) 141 H (75-99) mg/dL Calcium 8.5 L (8.7-10.3) mg/dL AST 77 H (14-35) U/L ALT 83 H (10-49) U/L Lactate Dehydrogenase 514 H (120-246) U/L C-Reactive Protein 1.8 H (0.0-0.8) mg/dL Albumin 3.30 L (3.80-4.90) g/dL Albumin/Globulin Ratio 1.14 L (1.60-3.17) g/dL Assessment and Plan Assessment: Acute hypoxic respiratory failure Covid 19 pneumonia Morbid obesity Plan: Continue IV REMdesivir along with steroids continue supplemental oxygen Deep breathing exercises incentive spirometry Patient advised to use prone positioning as much as possible Other recommendations pending plan of care as per clinical response of the pat ient Time with Patient: Greater than 30
--- NOTE | 2020-05-06 10:23 | P.PN ---
Subjective From records This is a pleasant 55-year-old patient who follows with Dr. Loaiza. Normally in good health. About 8 days ago patient started off with fever or chills significant headaches. Some diarrhea. Some loss of taste and smell. Bodyaches. Patient's is also got COVID. Initiate called in to his family doctor was given Zithromax. Didn't improve decided to go down to [facility] insects and dusky. Over the weekend. He does not remember his pulse ox. Was sent home. Symptoms are not really improved his a poor appetite. And is lost some weight. Decided to come in. In the ER was 91% on 3 L. Rather tight. Coughing quite a bit. Hospital course: Admitted with COVID 19 pneumonia, acute hypoxic respiratory failure. Started on Lovenox, steroids, zinc, Pepcid, vitamin D, vitamin C Today-cough. Tired. Nasal cannula. Oral intake a bit low. Tired Subjective: 05/04/2020 This is a pleasant 55 years old male who presents with respiratory distress and found to have Covid pneumonia and acute hypoxic respiratory failure. Patient was sitting in chair comfortable not in respiratory distress needed about 4-5 L of oxygen per minute to keep his oxygen saturation and 90s, he has mild coughing with no chest pain. He has also significant diarrhea with increased frequency about every hour as per patient with no abdominal pain or vomiting Patient was not on home oxygen Continue anticoagulation for surgery team hemodynamically he is a stable. Blood pressure was on the low side this morning 91/61 but improved thereafter. Labs including CBC and BMP are unremarkable. Prostatecalcitonin is not elevated at 0.06. Inflammatory markers are elevated with lactate dehydrogenase 1600, C- reactive protein 54.9. he is currently covered with dexamethasone, vitamin C, zinc, Lovenox and remdesivir Lower Lovenox. Therapeutic to prophylactic dose because of improving d-dimer within the reference range 05/05/2020 Patient clinically looks close to yesterday. Some improvement as he describes however clinically looks similar a still needs 4 L/m of oxygen to keep oxygen saturation above 90%. No tachypnea at rest with minimal cuff however he reports improvement in his diarrhea. Patient is asking when he can be discharged home, I explained to him he is not medically ready yet and he agrees to stay. No labs from today. Glucose is controlled. His dexamethasone dose was increased to 6 mg IV twice daily. He continue on Re mdesivir and Lovenox 40 mg twice daily. Also he isn't zinc and vitamin C. We will check for C. diff 05/06/2020 Patient respiratory status looks stable. He made little progress regarding his dyspnea. He still saturating 90% on 4 L oxygen via nasal cannula. He is afebrile. His diarrhea had stopped completely as per patient. D-dimer is negative at 0.39. BMP is unremarkable today. Glucose is controlled. Liver enzymes slightly elevated. Lactate dehydrogenase is 514, was 1600 about 2 days ago and C-reactive protein is 1.8, pulse 54, 2 days ago Repeat chest x-ray showing low lung volumes and multifocal bilateral acute infiltrates consistent with his known Covid 19 infection. No significant change from most recent x-ray Review of systems CONSTITUTIONAL: No fever, no malaise, no fatigue. HEENT: No recent visual problems or hearing problems. Denied any sore throat. CARDIOVASCULAR: No orthopnea, PND, no palpitations, no syncope. PULMONARY: No shortness of breath, no cough, no hemoptysis. GASTROINTESTINAL: No diarrhea, no nausea, no vomiting, no abdominal pain. Normoactive bowel sounds. NEUROLOGICAL: No headaches, no weakness, no numbness. Active Medications Generic Name Dose Route Start Last Admin Trade Name Freq PRN Reason Stop Dose Admin Acetaminophen 650 mg 05/02/20 14:57 Acetaminophen Tab 325 Mg Tab PO Q6HR PRN Mild Pain or Fever > 100.5 Albuterol Sulfate 4 puff 05/02/20 23:45 05/06/20 07:21 Albuterol Hfa Inhaler INHALATION 4 puff Q4H CHARAMINE Administration Ascorbic Acid 500 mg 05/02/20 23:45 05/06/20 07:19 Ascorbic Acid 500 Mg Tab PO 500 mg DAILY CHARMAINE Administration Cholecalciferol 100 mcg 05/02/20 23:45 05/06/20 07:18 Cholecalciferol 25 Mcg (1000 Iu) Tablet PO 100 mcg DAILY CHARMAINE Administration Dexamethasone Sodium Phosphate 6 mg 05/05/20 09:00 05/06/20 07:19 Dexamethasone Sod Phosphate 10 Mg/Ml 1 Ml Vial IV 6 mg BID CHARMAINE Administration Enoxaparin Sodium 40 mg 05/04/20 21:00 05/06/20 07:19 Enoxaparin 40 Mg/0.4 Ml Syringe SQ 40 mg Q12HR CHARMAINE Administration Famotidine 20 mg 05/02/20 23:45 05/06/20 07:19 Famotidine 20 Mg Tab PO 20 mg BID CHARMAINE Administration Sodium Chloride 1,000 mls @ 20 mls/hr 05/02/20 15:00 05/05/20 16:44 Saline 0.9% IV Not Given .Q24H CHARMAINE Remdesivir 100 mg/ Sodium 250 mls @ 250 mls/hr 05/04/20 14:00 05/05/20 13:55 Chloride IVPB 05/07/20 14:59 250 mls/hr DAILY@1400 CHARMAINE Administration Insulin Aspart 0 unit 05/05/20 12:30 05/06/20 07:18 Insulin Aspart (Novolog) 100 Unit/Ml Vial SQ 2 unit ACHS CHARMAINE Administration Protocol Naloxone HCl 0.2 mg 05/02/20 14:57 Naloxone 0.4 Mg/Ml 1 Ml Vial IV Q2M PRN Opioid Reversal Ondansetron HCl 4 mg 05/02/20 18:23 05/03/20 09:01 Ondansetron 4 Mg/2 Ml Vial IVP 4 mg Q6HR PRN Administration Nausea And Vomiting Zinc Sulfate 220 mg 05/02/20 23:45 05/06/20 07:19 Zinc Sulfate 220 Mg Cap PO 220 mg DAILY CHARMAINE Administration Objective - Vital Signs Vital signs: Vital Signs Temp 97.6 F 05/06/20 05:42 Pulse 71 05/06/20 05:42 Resp 16 05/06/20 05:42 BP 131/81 05/06/20 05:42 Pulse Ox 94 L 05/06/20 05:42 Intake & Output 05/05/20 05/06/20 05/06/20 18:59 06:59 18:59 Intake Total 560 Balance 560 Intake: Intake, IV Titration 260 Amount Sodium Chloride 0.9% 1, 260 000 ml @ 20 mls/hr IV . Q24H CHARMAINE Rx#:[id number] Oral 300 Other: Voiding Method Toilet # Voids 3 3 # Bowel Movements 2 - Exam -GENERAL: The patient is alert and oriented x3, not in any acute distress. Obese HEENT: Pupils are round and equally reacting to light. EOMI. No scleral icterus. No conjunctival pallor. Normocephalic, atraumatic. No pharyngeal erythema. No thyromegaly. CARDIOVASCULAR: S1 and S2 present. No murmurs, rubs, or gallops. -PULMONARY: Chest is clear to auscultation, scattered crepitation ABDOMEN: Soft, nontender, nondistended, normoactive bowel sounds. No palpable organomegaly. MUSCULOSKELETAL: No joint swelling or deformity. EXTREMITIES: No cyanosis, clubbing, or pedal edema. NEUROLOGICAL: Gross neurological examination did not reveal any focal deficits. SKIN: No rashes. no petechiae. - Labs CBC & Chem 7: 05/04/20 06:06 05/06/20 06:16 Labs: Abnormal Lab Results - Last 24 Hours (Table) 05/05/20 05/05/20 05/05/20 Range/Units 11:51 16:44 20:42 BUN/Creatinine Ratio (12.00-20.00) Ratio Glucose (70-110) mg/dL POC Glucose (mg/dL) 126 H 145 H 140 H (75-99) mg/dL Calcium (8.7-10.3) mg/dL AST (14-35) U/L ALT (10-49) U/L Lactate Dehydrogenase (120-246) U/L C-Reactive Protein (0.0-0.8) mg/dL Albumin (3.80-4.90) g/dL Albumin/Globulin Ratio (1.60-3.17) g/dL 05/06/20 05/06/20 Range/Units 06:16 06:57 BUN/Creatinine Ratio 21.11 H (12.00-20.00) Ratio Glucose 144 H (70-110) mg/dL POC Glucose (mg/dL) 141 H (75-99) mg/dL Calcium 8.5 L (8.7-10.3) mg/dL AST 77 H (14-35) U/L ALT 83 H (10-49) U/L Lactate Dehydrogenase 514 H (120-246) U/L C-Reactive Protein 1.8 H (0.0-0.8) mg/dL Albumin 3.30 L (3.80-4.90) g/dL Albumin/Globulin Ratio 1.14 L (1.60-3.17) g/dL Assessment and Plan Assessment: -COVID 19 pneumonia, symptoms present for about a week before presentation.. Continue with Lovenox, Decadron, and supplements including zinc vitamin D vitamin C, Pepcid. Started on Remdesivir by ID and pulmonary. -Viral gastroenteritis secondary to Covid. Rule out C. diff -Acute hypoxic respiratory failure , c/w oxygen supplementation and incentive spirometry. -Obesity BMI 34.1 DVT prophylaxis: Lovenox GI prophylaxis: Pepcid Prognosis is guarded
[2020-05-06 11:25] LABS: Glucose,Whole Blood 297 mg/dL (75-99)
[2020-05-06] MEDS: REMDESIVIR 100 MG in SODIUM CHLORIDE 0.9% 250 ML IVPB SCH (13:30)
[2020-05-06] MEDS: SODIUM CHLORIDE 0.9% 1,000 ML IV SCH (13:33)
[2020-05-06 16:26] LABS: Glucose,Whole Blood 160 mg/dL (75-99)
[2020-05-06 20:18] LABS: Glucose,Whole Blood 132 mg/dL (75-99)
[2020-05-07] MEDS: ALBUTEROL HFA INHALER INHALATION SCH ×6 (03:21→23:38)
--- NOTE | 2020-05-07 06:39 | PN ---
PROGRESS NOTE DATE OF SERVICE: 05/06/2020 REASON FOR FOLLOWUP: COVID-19 pneumonia. INTERVAL HISTORY: Patient is currently afebrile. Patient is breathing more comfortably. The patient denies having any chest pain. He did have mild cough but not bringing up any sputum. No nausea, no vomiting. No abdominal pain. No diarrhea. PHYSICAL EXAMINATION: Blood pressure 111/67 with a pulse of 63, temperature 97.9. He is 92% on 4 L nasal cannula. General description is a middle-aged male up in the chair in no distress. Respiratory system: Unlabored breathing, decreased breath sounds at the bases, no wheeze. Heart S1, S2. Regular rate and rhythm. Abdomen is soft, no tenderness. LABS: Creatinine 0.90, LDH 514. Creatinine is down to 1.8. IMPRESSION/PLAN: Patient with acute COVID-19 pneumonia in this patient currently covered with a Remdesivir, dexamethasone, zinc. Lovenox to continue along with respiratory support and monitor clinical course closely. MMODL / IJN: [id number] /
[2020-05-07 07:29] LABS: Glucose,Whole Blood 144 mg/dL (75-99)
[2020-05-07] MEDS: DEXAMETHASONE SOD PHOSPHATE 10 MG/ML 1 ML VIAL IV SCH ×2 (09:10→21:08)
[2020-05-07] MEDS: ZINC SULFATE 220 MG CAP PO SCH (09:10)
[2020-05-07] MEDS: FAMOTIDINE 20 MG TAB PO SCH ×2 (09:10→21:08)
[2020-05-07] MEDS: ENOXAPARIN 40 MG/0.4 ML SYRINGE SQ SCH ×2 (09:10→21:08)
[2020-05-07] MEDS: INSULIN ASPART (NovoLOG) 100 UNIT/ML VIAL SQ SCH ×4 (09:10→21:42)
[2020-05-07] MEDS: CHOLECALCIFEROL 25 MCG (1000 IU) TABLET PO SCH (09:10)
[2020-05-07] MEDS: ASCORBIC ACID 500 MG TAB PO SCH (09:10)
--- NOTE | 2020-05-07 09:58 | P.PN ---
Subjective From records This is a pleasant 55-year-old patient who follows with Dr. Loaiza. Normally in good health. About 8 days ago patient started off with fever or chills significant headaches. Some diarrhea. Some loss of taste and smell. Bodyaches. Patient's is also got COVID. Initiate called in to his family doctor was given Zithromax. Didn't improve decided to go down to [facility] insects and dusky. Over the weekend. He does not remember his pulse ox. Was sent home. Symptoms are not really improved his a poor appetite. And is lost some weight. Decided to come in. In the ER was 91% on 3 L. Rather tight. Coughing quite a bit. Hospital course: Admitted with COVID 19 pneumonia, acute hypoxic respiratory failure. Started on Lovenox, steroids, zinc, Pepcid, vitamin D, vitamin C Today-cough. Tired. Nasal cannula. Oral intake a bit low. Tired Subjective: 05/04/2020 This is a pleasant 55 years old male who presents with respiratory distress and found to have Covid pneumonia and acute hypoxic respiratory failure. Patient was sitting in chair comfortable not in respiratory distress needed about 4-5 L of oxygen per minute to keep his oxygen saturation and 90s, he has mild coughing with no chest pain. He has also significant diarrhea with increased frequency about every hour as per patient with no abdominal pain or vomiting Patient was not on home oxygen Continue anticoagulation for surgery team hemodynamically he is a stable. Blood pressure was on the low side this morning 91/61 but improved thereafter. Labs including CBC and BMP are unremarkable. Prostatecalcitonin is not elevated at 0.06. Inflammatory markers are elevated with lactate dehydrogenase 1600, C- reactive protein 54.9. he is currently covered with dexamethasone, vitamin C, zinc, Lovenox and remdesivir Lower Lovenox. Therapeutic to prophylactic dose because of improving d-dimer within the reference range 05/05/2020 Patient clinically looks close to yesterday. Some improvement as he describes however clinically looks similar a still needs 4 L/m of oxygen to keep oxygen saturation above 90%. No tachypnea at rest with minimal cuff however he reports improvement in his diarrhea. Patient is asking when he can be discharged home, I explained to him he is not medically ready yet and he agrees to stay. No labs from today. Glucose is controlled. His dexamethasone dose was increased to 6 mg IV twice daily. He continue on Re mdesivir and Lovenox 40 mg twice daily. Also he isn't zinc and vitamin C. We will check for C. diff 05/06/2020 Patient respiratory status looks stable. He made little progress regarding his dyspnea. He still saturating 90% on 4 L oxygen via nasal cannula. He is afebrile. His diarrhea had stopped completely as per patient. D-dimer is negative at 0.39. BMP is unremarkable today. Glucose is controlled. Liver enzymes slightly elevated. Lactate dehydrogenase is 514, was 1600 about 2 days ago and C-reactive protein is 1.8, pulse 54, 2 days ago Repeat chest x-ray showing low lung volumes and multifocal bilateral acute infiltrates consistent with his known Covid 19 infection. No significant change from most recent x-ray. Rest of vitals are stable. 05/07/2020 Patient breathing is a stable as of yesterday. His tongue is 4 L of oxygen via nasal cannula. No chest pain or palpitation or dizziness. No diarrhea or abdominal pain. He is tolerating diet well. Glucose controlled He remains on dexamethasone twice daily, zinc, vitamin C today is his last dose of remdesivir , but also on prophylactic dose of Lovenox Review of systems CONSTITUTIONAL: No fever, no malaise, no fatigue. HEENT: No recent visual problems or hearing problems. Denied any sore throat. CARDIOVASCULAR: No orthopnea, PND, no palpitations, no syncope. PULMONARY: No shortness of breath, no cough, no hemoptysis. GASTROINTESTINAL: No diarrhea, no nausea, no vomiting, no abdominal pain. Normoactive bowel sounds. NEUROLOGICAL: No headaches, no weakness, no numbness. Active Medications Generic Name Dose Route Start Last Admin Trade Name Freq PRN Reason Stop Dose Admin Acetaminophen 650 mg 05/02/20 14:57 Acetaminophen Tab 325 Mg Tab PO Q6HR PRN Mild Pain or Fever > 100.5 Albuterol Sulfate 4 puff 05/02/20 23:45 05/07/20 07:37 Albuterol Hfa Inhaler INHALATION 4 puff Q4H CHARMAINE Administration Ascorbic Acid 500 mg 05/02/20 23:45 05/07/20 09:10 Ascorbic Acid 500 Mg Tab PO 500 mg DAILY CHARMAINE Administration Cholecalciferol 100 mcg 05/02/20 23:45 05/07/20 09:10 Cholecalciferol 25 Mcg (1000 Iu) Tablet PO 100 mcg DAILY CHAMRAINE Administration Dexamethasone Sodium Phosphate 6 mg 05/05/20 09:00 05/07/20 09:10 Dexamethasone Sod Phosphate 10 Mg/Ml 1 Ml Vial IV 6 mg BID CHARMAINE Administration Enoxaparin Sodium 40 mg 05/04/20 21:00 05/07/20 09:10 Enoxaparin 40 Mg/0.4 Ml Syringe SQ 40 mg Q12HR CHARMAINE Administration Famotidine 20 mg 05/02/20 23:45 05/07/20 09:10 Famotidine 20 Mg Tab PO 20 mg BID CHARMAINE Administration Sodium Chloride 1,000 mls @ 20 mls/hr 05/02/20 15:00 05/06/20 13:33 Saline 0.9% IV Not Given .Q24H CHARMAINE Remdesivir 100 mg/ Sodium 250 mls @ 250 mls/hr 05/04/20 14:00 05/06/20 13:30 Chloride IVPB 05/07/20 14:59 250 mls/hr DAILY@1400 CHARMAINE Administration Insulin Aspart 0 unit 05/05/20 12:30 05/07/20 09:10 Insulin Aspart (Novolog) 100 Unit/Ml Vial SQ 2 unit ACHS CHARMAINE Administration Protocol Naloxone HCl 0.2 mg 05/02/20 14:57 Naloxone 0.4 Mg/Ml 1 Ml Vial IV Q2M PRN Opioid Reversal Ondansetron HCl 4 mg 05/02/20 18:23 05/03/20 09:01 Ondansetron 4 Mg/2 Ml Vial IVP 4 mg Q6HR PRN Administration Nausea And Vomiting Zinc Sulfate 220 mg 05/02/20 23:45 05/07/20 09:10 Zinc Sulfate 220 Mg Cap PO 220 mg DAILY CHARMAINE Administration Objective - Vital Signs Vital signs: Vital Signs Temp 98.1 F 05/07/20 05:57 Pulse 81 05/07/20 05:57 Resp 18 05/07/20 05:57 BP 105/66 05/07/20 05:57 Pulse Ox 94 L 05/07/20 05:57 Intake & Output 05/06/20 05/07/20 05/07/20 18:59 06:59 18:59 Other: Voiding Method Toilet # Voids 2 2 # Bowel Movements 2 - Exam -GENERAL: The patient is alert and oriented x3, not in any acute distress. Obese HEENT: Pupils are round and equally reacting to light. EOMI. No scleral icterus. No conjunctival pallor. Normocephalic, atraumatic. No pharyngeal erythema. No thyromegaly. CARDIOVASCULAR: S1 and S2 present. No murmurs, rubs, or gallops. -PULMONARY: Chest is clear to auscultation, scattered crepitation ABDOMEN: Soft, nontender, nondistended, normoactive bowel sounds. No palpable or ganomegaly. MUSCULOSKELETAL: No joint swelling or deformity. EXTREMITIES: No cyanosis, clubbing, or pedal edema. NEUROLOGICAL: Gross neurological examination did not reveal any focal deficits. SKIN: No rashes. no petechiae. - Labs CBC & Chem 7: 05/04/20 06:06 05/06/20 06:16 Labs: Abnormal Lab Results - Last 24 Hours (Table) 05/06/20 05/06/20 05/06/20 Range/Units 11:23 16:24 20:17 POC Glucose (mg/dL) 297 H 160 H 132 H (75-99) mg/dL 05/07/20 Range/Units 07:27 POC Glucose (mg/dL) 144 H (75-99) mg/dL Assessment and Plan Assessment: -COVID 19 pneumonia, symptoms present for about a week before presentation.. Continue with Lovenox, Decadron, and supplements including zinc vitamin D vitamin C, Pepcid. Started on Remdesivir by ID and pulmonary. -Viral gastroenteritis secondary to Covid. Rule out C. diff -Acute hypoxic respiratory failure , c/w oxygen supplementation and incentive spirometry. -Obesity BMI 34.1 DVT prophylaxis: Lovenox GI prophylaxis: Pepcid Prognosis is guarded
--- NOTE | 2020-05-07 12:00 | P.PN ---
Subjective Progress Note Date: 05/07/20 Principal diagnosis: Acute hypoxic respiratory failure Covid 19 pneumonia Morbid obesity 05/07/2020, patient seen eval examined effort to continuously being tapered down currently on 2 L oxygen, intermittent cough and shortness of breath present but significantly improve, he remains afebrile hemodynamically stable saturation of 93% on 2 L oxygen, patient has finished a course of IV REMdesivir remains on IV Decadron 05/06/2020, patient seen and evaluated examined overall respiratory status is stable remains on 4 L oxygen, and feeling better cough congestion slightly impro gideon does get short of breath on activity and exertion, LDH came down to 514, chest x-ray done earlier today remains unchanged This is a 55-year-old nonsmoker male with the ongoing cough shortness of breath started from last week, she presented to [facility] where he was found to be hypoxic saturation 80s covert tests came back positive and transferred over here for further evaluation, currently patient is on 6 L oxygen his saturation is 92%, hemodynamic status stable, treated with the Decadron once daily Lovenox Zofran and REMdesivir chest x-ray bilateral interstitial infiltrate and some patchy atelectasis no significant change compared to prior x-rays Objective - Vital Signs Vital signs: Vital Signs Temp 97.3 F L 05/07/20 10:00 Pulse 90 05/07/20 10:00 Resp 16 05/07/20 10:00 BP 103/63 05/07/20 10:00 Pulse Ox 93 L 05/07/20 10:00 Intake & Output 05/06/20 05/07/20 05/07/20 18:59 06:59 18:59 Other: Voiding Method Toilet Toilet # Voids 2 2 # Bowel Movements 2 - Exam - Constitutional General appearance: average body habitus, cooperative, disheveled - EENT Eyes: PERRLA Ears: bilateral: normal - Neck Neck: normal ROM Carotids: bilateral: upstroke normal Thyroid: bilateral: normal size - Respiratory Respiratory: bilateral: diminished - Cardiovascular Rhythm: regular Heart sounds: normal: S1, S2 - Gastrointestinal General gastrointestinal: normal bowel sounds - Neurologic Neurologic: CNII-XII intact - Musculoskeletal Musculoskeletal: gait normal, generalized weakness, strength equal bilaterally - Psychiatric Psychiatric: A&O x's 3, appropriate affect, intact judgment & insight - Labs CBC & Chem 7: 05/04/20 06:06 05/06/20 06:16 Labs: Abnormal Lab Results - Last 24 Hours (Table) 05/06/20 05/06/20 05/07/20 Range/Units 16:24 20:17 07:27 POC Glucose (mg/dL) 160 H 132 H 144 H (75-99) mg/dL Assessment and Plan Assessment: Acute hypoxic respiratory failure Covid 19 pneumonia Morbid obesity Plan: Status post IV REMdesivir Continue IV Decadron continue supplemental oxygen, titrated down as tolerated Deep breathing exercises incentive spirometry Patient advised to use prone positioning as much as possible Other recommendations pending plan of care as per clinical response of the patient Time with Patient: Greater than 30
[2020-05-07 12:06] LABS: Glucose,Whole Blood 188 mg/dL (75-99)
[2020-05-07] MEDS: REMDESIVIR 100 MG in SODIUM CHLORIDE 0.9% 250 ML IVPB SCH (12:13)
[2020-05-07 17:21] LABS: Glucose,Whole Blood 182 mg/dL (75-99)
[2020-05-07] MEDS: SODIUM CHLORIDE 0.9% 1,000 ML IV SCH (19:13)
[2020-05-07 21:34] LABS: Glucose,Whole Blood 142 mg/dL (75-99)
--- NOTE | 2020-05-07 22:44 | PN ---
PROGRESS NOTE DATE OF SERVICE: 05/07/2020 REASON FOR FOLLOWUP: Acute COVID-19 pneumonia. INTERVAL HISTORY: The patient is currently afebrile. The patient is breathing comfortably. The patient denies having any chest pain or shortness of breath. Occasional cough. No nausea, no vomiting, no abdominal pain or diarrhea. PHYSICAL EXAMINATION: Blood pressure 105/66, pulse of 81, temperature 98.1. He is 94% on 4 L nasal cannula. General description is a middle-aged male lying in bed in no distress. RESPIRATORY SYSTEM: Unlabored breathing with decreased intensity of breath sounds. No wheeze. HEART: S1, S2. Regular rate and rhythm. ABDOMEN: Soft. No tenderness. LABS: No new labs have been obtained today. DIAGNOSTIC IMPRESSION AND PLAN: Patient with acute COVID-19 infection in this patient who completed his 5-day course of remdesivir today. The patient is covered with dexamethasone, Lovenox, zinc and is weaned off his oxygen. Continue with supportive care. MMODL / IJN: [id number] /
[2020-05-08] MEDS: ALBUTEROL HFA INHALER INHALATION SCH ×3 (03:10→11:53)
[2020-05-08 07:15] LABS: Glucose,Whole Blood 133 mg/dL (75-99)
[2020-05-08] MEDS: INSULIN ASPART (NovoLOG) 100 UNIT/ML VIAL SQ SCH ×2 (07:19→11:45)
[2020-05-08] MEDS: ZINC SULFATE 220 MG CAP PO SCH (08:11)
[2020-05-08] MEDS: FAMOTIDINE 20 MG TAB PO SCH (08:11)
[2020-05-08] MEDS: CHOLECALCIFEROL 25 MCG (1000 IU) TABLET PO SCH (08:11)
[2020-05-08] MEDS: ASCORBIC ACID 500 MG TAB PO SCH (08:11)
[2020-05-08] MEDS: DEXAMETHASONE SOD PHOSPHATE 10 MG/ML 1 ML VIAL IV SCH (08:11)
[2020-05-08] MEDS: ENOXAPARIN 40 MG/0.4 ML SYRINGE SQ SCH (08:12)
--- NOTE | 2020-05-08 09:25 | XR ---
EXAMINATION TYPE: XR chest 1V DATE OF EXAM: 05/08/2020 COMPARISON: 05/06/2020 INDICATION: Follow-up short of breath: TECHNIQUE: Single frontal view of the chest is obtained. FINDINGS: The heart size is normal. The pulmonary vasculature is slightly prominent. Scattered nonspecific infiltrates are present bilaterally which can be compatible with atypical pneum onia. IMPRESSION: 1. Scattered bilateral lung infiltrates remain present can be compatible with atypical pneumonia.
[2020-05-08 10:26] VITALS: BP 118/80; PULSE 83; RESP 16; TEMP 98
--- NOTE | 2020-05-08 11:50 | P.PN ---
Subjective Progress Note Date: 05/08/20 Principal diagnosis: Acute hypoxic respiratory failure Covid 19 pneumonia Morbid obesity 05/08/2020, patient seen eval examined during the rounds labs reviewed medications reviewed care plan discussed, respiratory status significantly improved Cuff congestion improved as well, patient is on room air post activity and exertion sets are 94% however he does get short of breath on activity and exertion, patient is being planned for discharge on oral Decadron with follow-up in office on outpatient basis would do a pulmonary function test, and the sleep study 05/07/2020, patient seen eval examined effort to continuously being tapered down currently on 2 L oxygen, intermittent cough and shortness of breath present but significantly improve, he remains afebrile hemodynamically stable saturation of 93% on 2 L oxygen, patient has finished a course of IV REMdesivir remains on IV Decadron 05/06/2020, patient seen and evaluated examined overall respiratory status is stable remains on 4 L oxygen, and feeling better cough congestion slightly improved does get short of breath on activity and exertion, LDH came down to 514, chest x-ray done earlier today remains unchanged This is a 55-year-old nonsmoker male with the ongoing cough shortness of breath started from last week, she presented to [facility] where he was found to be hypoxic saturation 80s covert tests came back positive and transferred over here for further evaluation, currently patient is on 6 L oxygen his saturation is 92%, hemodynamic status stable, treated with the Decadron once daily Lovenox Zofran and REMdesivir chest x-ray bilateral interstitial infiltrate and some patchy atelectasis no significant change compared to prior x-rays Objective - Vital Signs Vital signs: Vital Signs Temp 98.0 F 05/08/20 09:00 Pulse 83 05/08/20 09:00 Resp 16 05/08/20 09:00 BP 118/80 05/08/20 09:00 Pulse Ox 94 L 05/08/20 11:29 Intake & Output 05/07/20 05/08/20 05/08/20 18:59 06:59 18:59 Intake Total 250 500 Balance 250 500 Weight 127.006 kg Intake: Intake, IV Titration 250 Amount Remdesivir 100 mg In 250 Sodium Chloride 0.9% 250 ml @ 250 mls/hr IVPB DAILY@1400 [facility] Rx#: [id number] Oral 500 Other: Voiding Method Toilet Toilet Toilet # Voids 1 # Bowel Movements 2 - Exam - Constitutional General appearance: average body habitus, cooperative, disheveled - EENT Eyes: PERRLA Ears: bilateral: normal - Neck Neck: normal ROM Carotids: bilateral: upstroke normal Thyroid: bilateral: normal size - Respiratory Respiratory: bilateral: diminished - Cardiovascular Rhythm: regular Heart sounds: normal: S1, S2 - Gastrointestinal General gastrointestinal: normal bowel sounds - Neurologic Neurologic: CNII-XII intact - Musculoskeletal Musculoskeletal: gait normal, generalized weakness, strength equal bilaterally - Psychiatric Psychiatric: A&O x's 3, appropriate affect, intact judgment & insight - Labs CBC & Chem 7: 05/04/20 06:06 05/06/20 06:16 Labs: Abnormal Lab Results - Last 24 Hours (Table) 05/07/20 05/07/20 05/07/20 Range/Units 11:59 17:19 21:26 POC Glucose (mg/dL) 188 H 182 H 142 H (75-99) mg/dL 05/08/20 Range/Units 07:13 POC Glucose (mg/dL) 133 H (75-99) mg/dL Assessment and Plan Assessment: Acute hypoxic respiratory failure Covid 19 pneumonia Obstructive sleep apnea COPD Steroid-induced hyperglycemia/prediabetic Morbid obesity Plan: Status post IV REMdesivir Status post IV Decadron can be discharged on 6 mg oral daily for another 5-7 days Deep breathing exercises incentive spirometry Patient advised to use prone positioning as much as possible Agree with discharge planning with follow-up on outpatient basis so that her pulmonary function tests and sleep study can be performed Other recommendations pending plan of care as per clinical response of the patient Time with Patient: Greater than 30
--- NOTE | 2020-05-09 01:40 | P.DS ---
Providers Date of admission: 05/02/20 14:57 Attending physician: Ben Haddad Consults: 05/02/20 23:38 Consult Physician Routine Consulting Provider: Deirdre Jones Consult Reason/Comments: COVID 19 Do you want consulting provider notified?: Yes 05/02/20 23:47 Consult Physician Routine Consulting Provider: Ugo Whitehead Consult Reason/Comments: covid-19 Do you want consulting provider notified?: Yes 05/04/20 11:56 Consult Physician Urgent Consulting Provider: Ugo Whitehead Consult Reason/Comments: Hypoxia Do you want consulting provider notified?: Yes Primary care physician: [facility] Course: Diagnoses: -COVID 19 pneumonia, -Viral gastroenteritis secondary to Covid. -Acute hypoxic respiratory failure -Obesity BMI 34.1 Hospital course: This is a pleasant 55-year-old patient who follows with Dr. Loaiza. Normally in good health. About 8 days ago patient started off with fever or chills significant headaches. Some diarrhea. Some loss of taste and smell. Bodyaches. Patient's is also got COVID. Initiate called in to his family doctor was given Zithromax. Didn't improve decided to go down to [facility] insects and dusky. Over the weekend. He does not remember his pulse ox. Was sent home. Symptoms are not really improved his a poor appetite. And is lost some weight. Decided to come in. In the ER was 91% on 3 L. Rather tight. Coughing quite a bit. Hospital course: Admitted with COVID 19 pneumonia, acute hypoxic respiratory failure. Started on Lovenox, steroids, zinc, Pepcid, vitamin D, vitamin C Today-cough. Tired. Nasal cannula. Oral intake a bit low. Tired Subjective: 05/04/2020 This is a pleasant 55 years old male who presents with respiratory distress and found to have Covid pneumonia and acute hypoxic respiratory failure. Patient's followed by pulmonary and infectious disease team and he was treated with dexamethasone, vitamin C, zinc, Lovenox and remdesivir. Patient showed interval improvement and his diarrhea stopped, his breathing is significantly improved and on the day of discharge his back on room air with oxygen saturating about 92%. Discussed with bed side nurse Juan Daniel to check need for home oxygen she tolerates been checked and he does not need home oxygen. On the day of discharge patient denies dyspnea or chest pain, no abdominal pain, no change in urine or bowel habits, no nausea vomiting. No fever. Patient was eager to go home over the last 3-4 days and even today he wanted to be discharged earlier morning rather than later. Patient was cleared for discharge by infectious disease and pulmonary team Patient will be discharged on dexamethasone for 6 more day to finish his course. See discharge orders for other medication Problems and management plan were discussed with the patient and he verbalized understanding and acceptance Patient was found stable and can be discharged home however he needs follow-up as an outpatient. Patient was instructed to follow up with PCP Dr. Loaiza within one week and patient agrees. Patient was instructed to follow up with mergers and acquisitions associate Dr. Whitehead in 1-2 weeks and he agrees to call and make up his appointment Gen: patient is a AAOx3, no distress. Obese CVS: S1-S2, RRR, no murmur Lungs: B/L CTA, no wheezing Abdomen: soft, no distention, no tenderness, positive bowel sounds Extremity: no leg edema or induration Time spent more than 35 minutes Patient Condition at Discharge: Fair Plan - Discharge Summary Discharge Rx Participant: Yes New Discharge Prescriptions: New Dexamethasone [Decadron] 6 mg PO DAILY 6 Days #6 tablet Zinc Sulfate [Orazinc] 220 mg PO DAILY #30 cap Famotidine [Pepcid] 20 mg PO BID 14 Days #28 tab Albuterol Inhaler [Ventolin Hfa Inhaler] 2 puff INHALATION Q4H #1 inh Ascorbic Acid [Vitamin C] 500 mg PO DAILY #30 tab Cholecalciferol [Vitamin D3 (25 Mcg = 1000 Iu)] 100 mcg PO DAILY #30 tablet Discharge Medication List Albuterol Inhaler [Ventolin Hfa Inhaler] 2 puff INHALATION Q4H #1 inh 05/08/20 [Rx] Ascorbic Acid [Vitamin C] 500 mg PO DAILY #30 tab 05/08/20 [Rx] Cholecalciferol [Vitamin D3 (25 Mcg = 1000 Iu)] 100 mcg PO DAILY #30 tablet 05/08/20 [Rx] Dexamethasone [Decadron] 6 mg PO DAILY 6 Days #6 tablet 05/08/20 [Rx] Famotidine [Pepcid] 20 mg PO BID 14 Days #28 tab 05/08/20 [Rx] Zinc Sulfate [Orazinc] 220 mg PO DAILY #30 cap 05/08/20 [Rx] Follow up Appointment(s)/Referral(s): Jean Loaiza MD [Primary Care Provider] - 05/14/20 8:30 am (with Jaimie This will be telephone call) Ugo Whitehead MD [STAFF PHYSICIAN] - 1 Week (Office Closed at time of discharge. Please call to make appointement) Patient Instructions/Handouts: Coronavirus Disease 2019 (COVID-19) Activity/Diet/Wound Care/Special Instructions: low carbohydrate diet 1800 kcal per day activity is restricted till you see your doctor Discharge Disposition: HOME SELF-CARE
== END 2020-05-08 12:42 | disposition home or self-care (01) | DRG 177 ==
LOC: EC 14:12 → 4SSUR 14:57
PROVIDERS: ADMIT Hospitalist; ATTEND Hospitalist
PROC: XW033E5 Introduction of Remdesivir Anti-infective into Peripheral Vein, Percutaneous Approach, New Technology Group 5 (ICD-10-PCS; principal; 2020-05-03)
DX: U07.1 COVID-19 (principal); J12.82 Pneumonia due to coronavirus disease 2019; J96.01 Acute respiratory failure with hypoxia; A08.39 Other viral enteritis; J98.11 Atelectasis; J44.0 Chronic obstructive pulmonary disease with (acute) lower respiratory infection; E66.01 Morbid (severe) obesity due to excess calories; Z68.34 Body mass index [BMI] 34.0-34.9, adult; G47.33 Obstructive sleep apnea (adult) (pediatric); R73.9 Hyperglycemia, unspecified; T38.0X5A Adverse effect of glucocorticoids and synthetic analogues, initial encounter; R73.03 Prediabetes; Z90.49 Acquired absence of other specified parts of digestive tract; Z87.19 Personal history of other diseases of the digestive system; Z86.69 Personal history of other diseases of the nervous system and sense organs; Z98.890 Other specified postprocedural states
CPT/HCPCS: 71045; 80053; 83615; 84145; 85025; 85379; 86140; 94640; 94760; 99285